=== PATIENT | female | born 1945 | race Caucasian/White ===

== ENCOUNTER → 2020-07-25 | Outpatient (CLI) | payer MEDICARE ==
[2020-07-25 16:43] LABS: RED BLOOD COUNT 3.91 M/UL (4.00-5.10); WHITE BLOOD COUNT 7.9 K/UL (4.5-11.0)
[2020-07-28 11:14] LABS: CREATININE, URINE 22.2 mg/dL (Not Estab.)
== END ==
LOC: LAB 15:55
DX: N18.30 Chronic kidney disease, stage 3 unspecified (principal); R80.9 Proteinuria, unspecified; R10.11 Right upper quadrant pain
CPT/HCPCS: 36415; 80069; 81001; 82043; 82570; 83735; 85025